=== PATIENT | female | born 1955 | race Caucasian/White ===

== ENCOUNTER 2017-10-24 12:22 | Emergency (ER) | payer BC ==
[~2017-10-24] VITALS: Ht 154.9 cm; Wt 81.6 kg
--- OUTSIDE RECORDS SUMMARY | 2017-10-24 12:25 | XMS REPORT ---
Author Author [facility] Address Unknown Phone Unavailable Care Team Providers Care Marine Pipefitter Helper Name Role Phone JAMESDARCY MARLON Unavailable Unavailable Problems This patient has no known problems. Allergies, Adverse Reactions, Alerts This patient has no known allergies or adverse reactions. Medications This patient has no known medications. Results Test Description Test Time Test Comments Text Results Atomic Results Result Comments POCT-GLUCOSE METER 2016-08-04 13:48:00 POC-GLUCOSE METER (KERA) (test [id number]) 104 mg/dL 70-110 TESTED AT [facility] [address] [place] [id number]
--- OUTSIDE RECORDS SUMMARY | 2017-10-24 12:25 | XMS REPORT | Clinical Summary ---
Author Author [facility] Address Unknown Phone Unavailable Care Team Providers Care Drainlayer Name Role Phone Rosemary Barrera MD PCP Allergies Active Allergy Reactions Severity Noted Date Comments No Known Drug Allergies 09/27/2015 Current Medications Prescription Sig. Disp. Refills Start End Date Status Date celecoxib (CeleBREX) 200 TAKE ONE CAPSULE BY MOUTH 02/11/20 Active MG capsule DAILY 16 cyclobenzaprine Take 5 mg by mouth. 02/11/20 Active (FLEXERIL) 5 MG tablet 16 metFORMIN (GLUCOPHAGE) Take 1 tablet by mouth. 01/13/20 Active 500 MG tablet 16 Active Problems Problem Noted Date Rotator cuff impingement syndrome of right shoulder 03/15/2017 Knee injury 09/27/2015 Malignant neoplasm of overlapping sites of breast in female, estrogen 2015 receptor negative Osteoarthritis of carpometacarpal joint of thumb 11/21/2014 Carpal tunnel syndrome 04/13/2014 Lesion of ulnar nerve 04/13/2014 Ulnar neuropathy 04/09/2014 Osteoarthritis of cervical spine 07/21/2013 Disorder of bone and articular cartilage 05/19/2011 Pain in joint 08/25/2010 Overview: Last Assessment & Plan: Check labs Hypercalcemia 08/25/2010 Overview: Last Assessment & Plan: Check labs, given xuan pains will check Vit D . Alk Phos was normal. Muscle pain 08/25/2010 Encounters Date Type Specialty Care Team Description 04/26/2017 Office Visit Orthopedic Surgery Sukh Henao MD Rotator cuff impingement syndrome of right shoulder (Primary Dx) 03/15/2017 Office Visit Orthopedic Surgery Suhk Henao MD Rotator cuff impingement syndrome of right shoulder (Primary Dx) 03/15/2017 Orders Only Orthopedic Surgery Farida Keenan Right shoulder pain, unspecified chronicity (Primary Dx) 03/11/2017 Office Visit Oncology Petra Rios MD Malignant neoplasm of overlapping sites of left breast in female, estrogen receptor negative (Primary Dx) 03/11/2017 Hospital Radiology Petra Rios MD Malignant neoplasm of Encounter left female breast 03/11/2017 Hospital Radiology Petra Rios MD Malignant neoplasm of Encounter left female breast; Malignant neoplasm of left female breast 03/11/2017 Orders Only Oncology Alla Bucio MA Malignant neoplasm of overlapping sites of left breast in female, estrogen receptor negative (Primary Dx) 03/11/2017 Ancillary Oncology Petra Rios MD Malignant neoplasm of Orders left female breast 03/11/2017 Ancillary Oncology Petra Rios MD Malignant neoplasm of Orders left female breast 03/11/2017 Ancillary Oncology Petra Rios MD Malignant neoplasm of Orders left female breast after 10/23/2016 Immunizations Name Dates Previously Given Next Due Tdap 01/12/2013 Family History Medical History Relation Name Comments Cancer Maternal Malignant tumor of pancreas Uncle Cancer Mother Malignant melanoma Relation Name Status Comments Maternal Uncle (Age 85) Mother Social History Tobacco Use Types Packs/Day Years Used Date Former Smoker Cigarettes 0.25 10 Quit: 2005 Smokeless Tobacco: Never Used Alcohol Use Drinks/Week oz/Week Comments No Sex Assigned at Date Recorded Not on file Last Filed Vital Signs Vital Sign Reading Time Taken Blood Pressure 145/74 03/11/2017 10:12 AM CDT Pulse 76 03/11/2017 10:12 AM CDT Temperature 36.2 C (97.2 F) 03/11/2017 10:12 AM CDT Respiratory Rate - - Oxygen Saturation - - Inhaled Oxygen - - Concentration Weight 81.6 kg (180 lb) 04/26/2017 9:09 AM [employer] Height 162.6 cm (5' 4") 04/26/2017 9:09 AM [employer] Body Mass Index 30.9 04/26/2017 9:09 AM [employer] Plan of Treatment Date Type Specialty Care Team Description 03/10/2018 Appointment Radiology Petra Rios MD [address] [address] 03/10/2018 Office Visit Oncology Petra Rios MD [address] [address] [phone] Health Maintenance Due Date Last Done Comments CERVICAL CANCER SCREENING 1978 COLON CANCER SCREENING 09/09/2007 SHINGRIX VACCINE (#1) 09/09/2007 ZOSTER VACCINE 2017 INFLUENZA VACCINE 12/15/2017 BREAST CANCER SCREENING 03/11/2019 03/11/2017, 03/11/2017, 03/05/2016, Additional history exists Procedures Procedure Name Priority Date/Time Associated Diagnosis Comments CO ARTHROCENTESIS Routine 03/15/2017 Rotator cuff impingement Results for this ASPIR&/INJ MAJOR JT/BURSA 10:40 AM CDT syndrome of right procedure are in the W/O US shoulder results section. after 10/23/2016 Results * Large Joint Arthrocentesis (03/15/2017 10:40 AM) Narrative Sukh Henao MD 03/15/2017 10:40 AM Large Joint Arthrocentesis Consent given by: patient Site marked: site marked Timeout: Immediately prior to procedure a time out was called to verify the correct patient, procedure, equipment, it support specialist and site/side marked as required Supporting Documentation Indications: pain Procedure Details Preparation: Patient was prepped and draped in the usual sterile fashion Ultrasound guided: no Location: shoulder - R subacromial bursa Right side: Needle size: 22 G Approach: posterior Right shoulder medications administered: 80 mg methylPREDNISolone acetate 80 mg/mL; 10 mL lidocaine 10 mg/mL (1 %); 2 mL bupivacaine 0.5 % (5 mg/mL) Patient tolerance: patient tolerated the procedure well with no immediate complications * XR Shoulder 2+ Vw Right (03/15/2017 9:01 AM) Specimen Performing Laboratory [place] [address] Narrative Four views (true AP, axillary, outlet, and Zanca views) of the right shoulder are obtained and reviewed today.The glenohumeral and AC joints appear normal.There is no evidence of dislocation, fracture, or significant degenerative change. No abnormal soft tissue calcifications are seen. * US Breast Complete Right (03/11/2017 8:36 AM) Specimen Performing Laboratory [facility] [address] [place] [address] Narrative EXAMINATION:MAMMO DIAGNOSTIC W CAD RIGHT, US BREAST COMPLETE RIGHT INDICATION:History of left mastectomy in 2005. History of right reduction surgery. There is left implant placed, saline implant placed 2006. Also pain in the right shoulder and right axilla. COMPARISON:2012 through March 05, 2016. FINDINGS: There are scattered areas of fibroglandular density.There is no suspicious mass, distortion, asymmetry, or suspicious microcalcifications.No adverse changes noted. No new findings. Right unilateral whole breast complete sonography was performed by both the knurling machine tender and myself. This included sonographic evaluation of all 4 quadrants as well as the subareolar region.No solid or cystic lesion of concern nor abnormal acoustic shadowing is detected. Normal right axilla also done. IMPRESSION:Benign findings RECOMMENDATION: Clinical follow-up for rotator cuff and/or axillary pain. BI-RADS 2: BENIGN. [facility]-[id number] * Mammo Diagnostic w Cad Right (03/11/2017 8:04 AM) Specimen Performing Laboratory [address] [address] Narrative EXAMINATION:MAMMO DIAGNOSTIC W CAD RIGHT, US BREAST COMPLETE RIGHT INDICATION:History of left mastectomy in 2005. History of right reduction surgery. There is left implant placed, saline implant placed 2006. Also pain in the right shoulder and right axilla. COMPARISON:2012 through March 05, 2016. FINDINGS: There are scattered areas of fibroglandular density.There is no suspicious mass, distortion, asymmetry, or suspicious microcalcifications.No adverse changes noted. No new findings. Right unilateral whole breast complete sonography was performed by both the knurling machine tender and myself. This included sonographic evaluation of all 4 quadrants as well as the subareolar region.No solid or cystic lesion of concern nor abnormal acoustic shadowing is detected. Normal right axilla also done. IMPRESSION:Benign findings RECOMMENDATION: Clinical follow-up for rotator cuff and/or axillary pain. BI-RADS 2: BENIGN. [facility]-[id number] after 10/23/2016 Insurance Payer Benefit Subscriber ID Type Phone Address Plan / Group BCBS BCBS xxxxxxxxxxxx PPO CHOICE PPO/[employer] PPO Home:
[2017-10-24] MEDS ORDERED: HYDROCODONE/APAP 5MG-325MG TAB PO ONE (12:45)
== END 2017-10-24 16:57 | disposition home or self-care (01) ==
LOC: FSED 12:22
DX: S63.634A Sprain of interphalangeal joint of right ring finger, initial encounter (principal); W20.8XXA Other cause of strike by thrown, projected or falling object, initial encounter; Y92.007 Garden or yard of unspecified non-institutional (private) residence as the place of occurrence of the external cause; Z85.3 Personal history of malignant neoplasm of breast
CPT/HCPCS: 99284